=== PATIENT | male | born 1985 | race Caucasian/White ===

== ENCOUNTER 2025-01-23 10:49 | Emergency (ER) | payer BC, MEDICAID, SELFPAY ==
[2025-01-23 11:24] VITALS: BP 103/72; PULSE 69; RESP 17; TEMP 36.7; O2SAT 99; BMI 22.1
--- NOTE | 2025-01-23 11:42 | W.ED.NAVMDI ---
HPI - Nausea/Vomiting/Diarrhea General: Chief complaint: Nausea/Vomiting/Diarrhea Stated complaint: diarhea Time Seen by Provider: 01/23/25 11:11 History of Present Illness: 39-year-old male presents to the ED with complaint of nonbloody, watery diarrhea over the past 4 days. Patient states he initially he had about 10-15 episodes of diarrhea per day but now it has gone down to about 3-4 episodes per day. He reports of associated diffuse abdominal pain, nausea without vomiting, and intermittent fevers. Denies any upper respiratory symptoms, including cough, rhinorrhea, sore throat. No other complaints at this time. Associated nausea: Yes Associated symtoms: Reports nausea; Denies chest pain, dysuria or headache(s) Related Data Home Medications ?Medication ?Instructions ?Recorded ?Confirmed naproxen sodium 220 mg tablet 440 mg PO Q12H PRN Fever Or Pain 01/23/25 01/23/25 Previous Rx's ?Medication ?Instructions ?Recorded ondansetron HCl 4 mg tablet 4 mg PO Q6H PRN nausea and 01/23/25 vomiting #20 tabs Allergies Allergy/AdvReac Type Severity Reaction Status Date / Time ANTIBIOTICS Allergy Unknown Uncoded 01/23/25 11:26 Review of Systems Const: Reports: fever(s) and chills ENMT: Denies: throat pain, nasal discharge or nasal congestion Card: Denies: chest pain Resp: Denies: dyspnea or productive cough GI: Reports: abdominal pain, nausea and diarrhea; Denies: vomiting or hematochezia : Denies: difficulty urinating or dysuria Neuro: Denies: headache(s) Physical Exam Const: COMMON NORMALS: no acute distress, patient oriented x3 and well nourished HENMT: COMMON NORMALS: normocephalic, Normal external nose present and Normal nasal mucous membranes and turbinates present HEAD & SCALP: normocephalic NOSE: Normal external nose present and Normal nasal mucous membranes and turbinates present MOUTH: Normal oral and palatal mucosa present THROAT: posterior oropharynx normal Resp: COMMON NORMALS: normal respiratory effort and clear to auscultation bilaterally AUSCULTATION: clear to auscultation bilaterally Cardio: COMMON NORMALS: regular rate and regular rhythm RATE: regular rate RHYTHM: regular rhythm GI: COMMON NORMALS: Normal to inspection, nondistended, normoactive bowel sounds present and Soft to palpation PALPATION: Yes Soft to palpation, Yes Tenderness to palpation present (GI) (Diffusely) and No Guarding due to palpation present (GI) Neuro: COMMON NORMALS: patient oriented x3 Course Vital Signs: Vital signs: Vital Signs Temperature 98.1 F 01/23/25 11:24 Pulse Rate 61 01/23/25 13:45 Respiratory Rate 17 01/23/25 11:24 Blood Pressure 112/70 01/23/25 13:45 Pulse Oximetry 100 01/23/25 13:45 Oxygen Delivery Me thod Room Air 01/23/25 11:24 MDM - Nausea/Vomiting/Diarrhea Medical Decision Making Nausea and diarrhea has already began to improve. Recommend clear liquid diet. Advance as tolerated ondansetron to use as needed. Reviewed labs no significant findings repeat abdominal exam benign Medical Records I reviewed the patient's medical records. Lab Data I reviewed the patient's lab results. 01/23/25 11:56 01/23/25 11:56 Laboratory Results WBC 6.67 10^3/uL (3.29-11.43) 01/23/25 11:56 RBC 4.84 10^6/uL (3.85-5.65) 01/23/25 11:56 Hgb 14.70 g/dL (11.27-16.99) 01/23/25 11:56 Hct 41.9 % (37-53) 01/23/25 11:56 MCV 86.6 fl (82-101) 01/23/25 11:56 MCH 30.4 pg (27-33) 01/23/25 11:56 MCHC 35.1 g/dL (30-55) 01/23/25 11:56 RDW 11.7 % (12.1-15.1) L 01/23/25 11:56 Plt Count 224 10^3/cmm (157-399) 01/23/25 11:56 MPV 9.7 fL (7.4-10.4) 01/23/25 11:56 Neut % (Auto) 63.1 % 01/23/25 11:56 Lymph % (Auto) 19.8 % 01/23/25 11:56 [place] % (Auto) 15.3 % 01/23/25 11:56 Eos % (Auto) 1.2 % 01/23/25 11:56 Baso % (Auto) 0.3 % 01/23/25 11:56 Neut # (Auto) 4.21 10^3/uL (1.8-7.7) 01/23/25 11:56 Lymph # (Auto) 1.3 10^3/uL (0.8-4.8) 01/23/25 11:56 [place] # (Auto) 1.0 10^3/uL (0.2-0.9) H 01/23/25 11:56 Eos # (Auto) 0.1 10^3/uL (0.0-0.8) 01/23/25 11:56 Baso # (Auto) 0.0 10^3/uL (0.0-0.1) 01/23/25 11:56 Nucleated RBC % (auto) 0 % 01/23/25 11:56 Nucleated RBCs # 0.0 /100WBC 01/23/25 11:56 Sodium 138 mmol/L (136-145) 01/23/25 11:56 Potassium 3.6 mmol/L (3.5-5.1) 01/23/25 11:56 Chloride 100 mmol/L (98-107) 01/23/25 11:56 Carbon Dioxide 25 mmol/L (22-29) 01/23/25 11:56 Anion Gap 16.6 (5-19) 01/23/25 11:56 BUN 9 mg/dL (6-20) 01/23/25 11:56 Creatinine 0.9 mg/dL (0.7-1.2) 01/23/25 11:56 GFR Calculation 93.0 mL/min (90-130) 01/23/25 11:56 Glucose 88 mg/dL (65-115) 01/23/25 11:56 Calculated Osmolality 284 mOsm/kg (285-295) L 01/23/25 11:56 Calcium 9.0 mg/dL (8.5-10.5) 01/23/25 11:56 Total Bilirubin 0.4 mg/dL (0.15-1.2) 01/23/25 11:56 AST 18 U/L (0-40) 01/23/25 11:56 ALT 13 U/L (0-41) 01/23/25 11:56 Alkaline Phosphatase 75 U/L (40-130) 01/23/25 11:56 Total Protein 7.1 g/dL (6.6-8.7) 01/23/25 11:56 Albumin 4.0 g/dL (3.5-5.2) 01/23/25 11:56 Globulin 3.1 g/dL (1.3-4.6) 01/23/25 11:56 Lipase 35 U/L (13-60) 01/23/25 11:56 Urine Color Dark yellow (Yellow) A 01/23/25 12:32 Urine Appearance Clear (CLEAR) 01/23/25 12:32 Urine pH 6.5 (5-7) 01/23/25 12:32 Ur Specific [place] 1.028 (1.005-1.030) 01/23/25 12:32 Urine Protein 1+ (Negative) A 01/23/25 12:32 Urine Glucose (UA) Negative (Normal) 01/23/25 12:32 Urine Ketones Trace (Negative) 01/23/25 12:32 Urine Blood Trace (Negative) A 01/23/25 12:32 Urine Nitrate Negative (Negative) 01/23/25 12:32 Urine Bilirubin Negative (Negative) 01/23/25 12:32 Urine Urobilinogen 1.0 mg/dL (Negative) 01/23/25 12:32 Ur Leukocyte Esterase Negative (Negative) 01/23/25 12:32 Urine RBC 6-10 /hpf (0-2) 01/23/25 12:32 Urine WBC 0-5 /hpf (0-5) 01/23/25 12:32 Ur Squamous Epith Cells 0-5 /hpf (0-5) 01/23/25 12:32 Amorphous Sediment Not Reportable 01/23/25 12:32 Urine Bacteria None seen /hpf (NONE) 01/23/25 12:32 Hyaline Casts 1.65 /lpf 01/23/25 12:32 All radiology interpretation(s) finalized by discharge Discharge Plan Discharge Patient Disposition: Home Clinical Impression: Gastroenteritis Condition: Stable Prescriptions: New ondansetron HCl 4 mg tablet 4 mg PO Q6H PRN (Reason: nausea and vomiting) Qty: 20 0RF No Action naproxen sodium 220 mg Tablet 440 mg PO Q12H PRN (Reason: Fever Or Pain) Discharge Orders: Discharge ED (Routine); Ordered 01/23/25 Ordered By: Jerome Beal Discharge Diet: Usual diet Discharge Activity: Resume usual activity Patient Instructions: Opioid Safety, Pain Management, Patient Portal & [place] Instructions Activity Restrictions/Additional Instructions: Thank you for choosing [facility] for your healthcare needs today. It is very important that you follow up as instructed or that you return to the Emergency Department should you have concerns or if your condition changes or worsens in any way. You were seen in the emergency room with persistent symptoms of nausea vomiting diarrhea. Laboratory tests were unremarkable this is likely a virally mediated infection should be self-limiting. You can use Zofran as needed recommend clear liquid diet for 24 to 48 hours and advance as tolerated Print Language: Mongolian Coding Level of Care Code ED [employer] In[employer] for [employer]
[2025-01-23] MEDS: ondansetron 2 mg/ML SDV 2 mL 4 MG IVP (11:52)
[2025-01-23 12:05] VITALS: BP 115/77; O2SAT 99
[2025-01-23 12:15] LABS: Hematocrit 41.9 % (37-53); Hemoglobin 14.70 g/dL (11.27-16.99); Mean Corpuscular HGB Conc 35.1 g/dL (30-55); Mean Corpuscular Hemoglobin 30.4 pg (27-33); Mean Corpuscular Volume 86.6 fl (82-101); Nucleated Red Blood Cells % 0 %; Platelet Count 224 10^3/cmm (157-399); Red Blood Count 4.84 10^6/uL (3.85-5.65); White Blood Count 6.67 10^3/uL (3.29-11.43)
[2025-01-23 12:43] LABS: Glucose Urine UA Negative (Normal); Nitrate Urine Negative (Negative); Specific Gravity, Urine 1.028 (1.005-1.030)
[2025-01-23 12:46] LABS: Add Urine Microscopic? YES
[2025-01-23 12:49] VITALS: BP 115/77; O2SAT 100
[2025-01-23 13:00] VITALS: O2SAT 99
[2025-01-23 13:19] LABS: Alanine Aminotransferase 13 U/L (0-41); Albumin Level 4.0 g/dL (3.5-5.2); Alkaline Phosphatase 75 U/L (40-130); Anion Gap 16.6 (5-19); Aspartate Amino Transferase 18 U/L (0-40); Blood Urea Nitrogen 9 mg/dL (6-20); Calcium 9.0 mg/dL (8.5-10.5); Carbon Dioxide 25 mmol/L (22-29); Chloride 100 mmol/L (98-107); Creatinine Clr Calc Pharmacy 116.3164; Globulin 3.1 g/dL (1.3-4.6); Glucose 88 mg/dL (65-115); Lipase 35 U/L (13-60); Osmolality Calculated 284 mOsm/kg (285-295); Potassium 3.6 mmol/L (3.5-5.1); Sodium 138 mmol/L (136-145); Total Protein 7.1 g/dL (6.6-8.7)
[2025-01-23 13:45] VITALS: BP 112/70; PULSE 61; O2SAT 100
== END 2025-01-23 13:46 | disposition home or self-care (01) ==
PROVIDERS: Emergency Provider Family Medicine
DX: K52.9 Noninfective gastroenteritis and colitis, unspecified (principal)
CPT/HCPCS: 80053; 81001; 83690; 85025; 96361; 96374; 99284; J2405; J7030